=== PATIENT | female | born 2000 | race African-American/Black ===

== ENCOUNTER 2024-06-13 10:17 | Emergency (ER) | payer OTHER ==
[~2024-06-13] VITALS: Ht 165.1 cm; Wt 67.7 kg
[2024-06-13] MEDS ORDERED: IBUP-1022 PO (12:02)
[2024-06-13] MEDS ORDERED: METH-1164 PO (12:02)
[2024-06-13 12:10] VITALS: BP 115/66; TEMP 98.4; O2SAT 99
[2024-06-13] MEDS: IBUPROFEN 600MG TAB PO ONE (12:37)
== END 2024-06-13 12:38 | disposition home or self-care (01) ==
LOC: M ED 10:17
DX: S16.1XXA Strain of muscle, fascia and tendon at neck level, initial encounter (principal); V49.40XA Driver injured in collision with unspecified motor vehicles in traffic accident, initial encounter; Y92.410 Unspecified street and highway as the place of occurrence of the external cause; Y93.89 Activity, other specified; Y99.9 Unspecified external cause status; Z79.1 Long term (current) use of non-steroidal anti-inflammatories (NSAID); Z79.899 Other long term (current) drug therapy

== ENCOUNTER 2025-06-26 20:16 | Emergency (ER) | payer OTHER ==
[~2025-06-26] VITALS: Ht 167.6 cm; Wt 62.7 kg
[~2025-06-26 20:16] MED LIST: IBUP600T42 PO; METH-1164 PO
[2025-06-26 23:42] VITALS: BP 103/66; TEMP 96.8; O2SAT 99
== END 2025-06-26 23:43 | disposition home or self-care (01) ==
LOC: M ED 20:16
DX: S13.4XXA Sprain of ligaments of cervical spine, initial encounter (principal); S60.221A Contusion of right hand, initial encounter; S93.402A Sprain of unspecified ligament of left ankle, initial encounter; S80.211A Abrasion, right knee, initial encounter; S90.411A Abrasion, right great toe, initial encounter; Z79.1 Long term (current) use of non-steroidal anti-inflammatories (NSAID); Z79.899 Other long term (current) drug therapy; Y93.01 Activity, walking, marching and hiking; Y92.828 Other wilderness area as the place of occurrence of the external cause; Y99.9 Unspecified external cause status

== ENCOUNTER 2025-07-16 18:51 | Emergency (ER) | payer OTHER ==
[~2025-07-16] VITALS: Ht 167.6 cm; Wt 62.8 kg
[2025-07-16] MEDS ORDERED: MELO15TA28 PO (18:57)
[2025-07-17 00:35] VITALS: BP 109/59; TEMP 98.2; O2SAT 99
[2025-07-17] MEDS ORDERED: KETOROLAC 30 MG/ML 1 ML VIAL IM ONE (01:00)
== END 2025-07-17 00:30 | disposition home or self-care (01) ==
LOC: M ED 18:51
DX: M25.562 Pain in left knee (principal); Z79.899 Other long term (current) drug therapy

== ENCOUNTER → 2025-09-04 | Outpatient (REF) ==
[~2025-09-04] MED LIST changes: +MELO15TA28 PO
== END ==
LOC: M EMP 08:41
PROVIDERS: ATTEND Family Medicine
DX: Z01.89 Encounter for other specified special examinations (principal)

== ENCOUNTER → 2025-09-13 | Outpatient (CLI) | payer OTHER | LOC: M RAD 15:50 | DX: T14.8XXA Other injury of unspecified body region, initial encounter (principal); X58.XXXA Exposure to other specified factors, initial encounter; Y92.9 Unspecified place or not applicable; Y93.9 Activity, unspecified; Y99.9 Unspecified external cause status ==